=== PATIENT | male | born 1955 | race Caucasian/White ===

== ENCOUNTER 2020-12-30 09:27 | Day surgery (SDC) | payer OTHER ==
[~2020-12-30] VITALS: Ht 170.2 cm; Wt 85.5 kg
[2020-12-30] MEDS ORDERED: SODIUM CHLORIDE 0.9% 1,000 ML IV ONE (11:00)
[2020-12-30] MEDS ORDERED: SODIUM CHLORIDE 0.9% 1,000 ML ONE (11:00)
[2020-12-30 11:27] LABS: GLUCOMETER DEV NAME(LOC) SDS.; GLUCOSE,POINT OF CARE 255 MG/DL (70-110)
[2020-12-30] MEDS ORDERED: METF-961 PO (12:55)
[2020-12-30] MEDS ORDERED: METO25XL PO (12:55)
[2020-12-30] MEDS ORDERED: GLIP2.5ER PO (12:55)
[2020-12-30] MEDS ORDERED: IOHEXOL 300 MG/ML 150 ML VIAL ONE (13:17)
[2020-12-30] MEDS ORDERED: HEPARIN SODIUM 1000 UNITS/NS 1,000 ML ONE (13:17)
[2020-12-30] MEDS ORDERED: LIDOCAINE/PF 1% 30 ML VIAL ONE (13:17)
[2020-12-30] MEDS ORDERED: SODIUM BICARBONATE 50 MEQ/50 ML VIAL ONE (13:17)
[2020-12-30] MEDS ORDERED: DiphenhydrAMINE HCL 50 MG/ML VIAL ONE (14:27)
[2020-12-30] MEDS ORDERED: OMEP40CA12 PO (14:41)
[2020-12-30] MEDS ORDERED: GABA-1181 PO (14:41)
[2020-12-30] MEDS ORDERED: ERGO500054 PO (14:41)
[2020-12-30] MEDS ORDERED: ATOR-2 PO (14:41)
[2020-12-30] MEDS ORDERED: ASCO500T20 PO (14:41)
[2020-12-30] MEDS ORDERED: METF-446 PO (14:41)
[2020-12-30] MEDS ORDERED: NITR0.4T50 SL (14:41)
[2020-12-30] MEDS ORDERED: LISI10TA24 PO (14:41)
[2020-12-30] MEDS ORDERED: GLIP5 PO (14:41)
[2020-12-30] MEDS ORDERED: FERR325T22 PO (14:41)
[2020-12-30] MEDS ORDERED: ASPI-1444 PO (14:41)
[2020-12-30] MEDS ORDERED: DIAZEPAM 5 MG TABLET PO ONE (14:45)
[2020-12-30] MEDS ORDERED: DiphenhydrAMINE HCL 25 MG CAPSULE PO ONE (14:45)
== END 2020-12-30 18:15 | disposition left against medical advice (07) ==
LOC: CATHLAB 09:27
PROVIDERS: ATTEND Internal Medicine Interventional Cardiology
DX: R07.89 Other chest pain (principal); Z53.8 Procedure and treatment not carried out for other reasons; I10 Essential (primary) hypertension; E78.5 Hyperlipidemia, unspecified; I73.9 Peripheral vascular disease, unspecified; E11.51 Type 2 diabetes mellitus with diabetic peripheral angiopathy without gangrene; F32.9 Major depressive disorder, single episode, unspecified; Z89.512 Acquired absence of left leg below knee; Z98.890 Other specified postprocedural states; Z79.899 Other long term (current) drug therapy
CPT/HCPCS: 82962; J1644; J3490 ×2; J7030; Q9967; J1200

== ENCOUNTER 2021-12-02 05:44 | Day surgery (SDC) | payer OTHER ==
[~2021-12-02 05:44] MED LIST: ASCO500T20 PO; ASPI-1444 PO; ATOR-2 PO; ERGO500054 PO; FERR325T22 PO; GABA-1181 PO; GLIP5 PO; LISI10TA24 PO; METF-446 PO; METO25XL PO; NITR0.4T50 SL; OMEP40CA21 PO; SODIUM CHLORIDE 0.9% 1,000 ML IV ONE; SODIUM CHLORIDE 0.9% 1,000 ML ONE
[2021-12-02] MEDS ORDERED: ASPIRIN 81 MG CHEWABLE TABLET ONE (06:42)
[2021-12-02] MEDS ORDERED: DIAZEPAM 5 MG TABLET ONE (06:42)
[2021-12-02] MEDS ORDERED: DiphenhydrAMINE HCL 50 MG CAPSULE ONE (06:42)
[2021-12-02] MEDS ORDERED: DiphenhydrAMINE HCL 50 MG CAPSULE PO ONE (07:00)
[2021-12-02] MEDS ORDERED: ASPIRIN 81 MG CHEWABLE TABLET PO ONE (07:00)
[2021-12-02] MEDS ORDERED: DIAZEPAM 5 MG TABLET PO ONE (07:00)
[2021-12-02] MEDS ORDERED: SODIUM BICARBONATE 50 MEQ/50 ML VIAL ONE (07:17)
[2021-12-02] MEDS ORDERED: LIDOCAINE/PF 1% 30 ML VIAL ONE (07:17)
[2021-12-02] MEDS ORDERED: IOHEXOL 300 MG/ML 50 ML VIAL ONE (07:17)
[2021-12-02] MEDS ORDERED: IOHEXOL 300 MG/ML 150 ML VIAL ONE (07:18)
[2021-12-02] MEDS ORDERED: IOHEXOL 300 MG/ML 100 ML VIAL ONE (07:18)
[2021-12-02] MEDS ORDERED: HEPARIN SODIUM 1000 UNITS/NS 1,000 ML ONE (07:18)
[2021-12-02 07:48] VITALS: BP 179/84
[2021-12-02] MEDS ORDERED: HYDR-4527 PO (07:49)
[2021-12-02] MEDS ORDERED: METF-1211 PO (07:49)
[2021-12-02] MEDS ORDERED: NIFE60TA85 PO (07:49)
[2021-12-02] MEDS ORDERED: ASPI-1450 PO (07:49)
[2021-12-02] MEDS ORDERED: LEVO25CA2 PO (07:49)
[2021-12-02] MEDS ORDERED: GABA-1181 PO (07:49)
[2021-12-02] MEDS ORDERED: DOXY-354 PO (07:49)
[2021-12-02] MEDS ORDERED: NITR0.4T52 SL (07:49)
[2021-12-02] MEDS ORDERED: RANO500T3 PO (07:49)
[2021-12-02] MEDS ORDERED: ATOR40TA28 PO (07:49)
[2021-12-02] MEDS ORDERED: IBUP-2070 PO (07:49)
[2021-12-02] MEDS ORDERED: GLIP5 PO (07:49)
[2021-12-02] MEDS ORDERED: METO-558 PO (07:49)
[2021-12-02] MEDS ORDERED: VENL-193 PO (07:49)
[2021-12-02] MEDS ORDERED: ERTU1TAB11 PO (07:49)
[2021-12-02] MEDS ORDERED: METO25XL PO (07:49)
[2021-12-02] MEDS ORDERED: FERR-89 PO (07:49)
[2021-12-02] MEDS ORDERED: FOLI-130 PO (07:49)
[2021-12-02] MEDS ORDERED: RIVA10TA PO (07:49)
[2021-12-02] MEDS ORDERED: FentaNYL CITRATE PF 100 MCG/2 ML VIAL ONE (08:01)
[2021-12-02] MEDS ORDERED: MIDAZOLAM HCL 2 MG/2 ML VIAL ONE (08:01)
[2021-12-02 08:11] LABS: GLUCOMETER DEV NAME(LOC) SDS.; GLUCOSE,POINT OF CARE 101 MG/DL (70-110)
[2021-12-02] MEDS ORDERED: MIDAZOLAM HCL 2 MG/2 ML VIAL IVP ONE ×2 (08:15)
[2021-12-02] MEDS ORDERED: LIDOCAINE 1% 30 ML/SOD BICARB 8.4% 4 ML SQ ONE (08:15)
[2021-12-02] MEDS ORDERED: HEPARIN SODIUM 1000 UNITS/NS 1,000 ML IARTER ONE (08:15)
[2021-12-02] MEDS ORDERED: IOHEXOL 300 MG/ML 150 ML VIAL IARTER ONE (08:15)
[2021-12-02] MEDS ORDERED: FentaNYL CITRATE PF 100 MCG/2 ML VIAL IVP ONE ×3 (08:15→09:00)
[2021-12-02] MEDS ORDERED: HEPARIN SODIUM,PORCINE 5,000 UNITS/ML VIAL IVP ONE (08:30)
[2021-12-02 08:53] VITALS: BP 168/77
[2021-12-02] MEDS ORDERED: HydrALAZINE HCL 20 MG/ML VIAL IVP ONE ×2 (09:00)
== END 2021-12-02 13:25 | disposition home or self-care (01) ==
LOC: CATHLAB 05:44
PROVIDERS: ATTEND Internal Medicine Interventional Cardiology
DX: R07.89 Other chest pain (principal); I25.10 Atherosclerotic heart disease of native coronary artery without angina pectoris; I25.82 Chronic total occlusion of coronary artery; I25.84 Coronary atherosclerosis due to calcified coronary lesion; I10 Essential (primary) hypertension; I73.9 Peripheral vascular disease, unspecified; E78.5 Hyperlipidemia, unspecified; E78.1 Pure hyperglyceridemia; E11.9 Type 2 diabetes mellitus without complications; Z79.01 Long term (current) use of anticoagulants; Z79.84 Long term (current) use of oral hypoglycemic drugs; Z79.899 Other long term (current) drug therapy; Z89.612 Acquired absence of left leg above knee; Z90.49 Acquired absence of other specified parts of digestive tract; Z98.890 Other specified postprocedural states; Z99.3 Dependence on wheelchair
CPT/HCPCS: 82962; 93005; 93458; C1760; J0360; J1644; J2250; J3010; J3490 ×2; J7030; Q9967 ×3